=== PATIENT | female | born 1975 | race Caucasian/White ===

== ENCOUNTER → 2017-03-25 | Outpatient (CLI) | payer MEDICAID | LOC: BRMIMAGING 02-18 09:23 | PROVIDERS: ATTEND Registered Nurse | DX: N64.4 Mastodynia (principal) | CPT/HCPCS: 76641-PO; G0204 ==

== ENCOUNTER → 2018-03-26 | Outpatient (CLI) | payer MEDICAID | LOC: BRMIMAGING 10:29 | PROVIDERS: ATTEND Registered Nurse | DX: Z12.31 Encounter for screening mammogram for malignant neoplasm of breast (principal) ==

== ENCOUNTER → 2018-04-04 | Outpatient (CLI) | payer MEDICAID | LOC: BRMIMAGING 09:08 | PROVIDERS: ATTEND Registered Nurse | DX: N60.02 Solitary cyst of left breast (principal) | CPT/HCPCS: 76641-PO ==